=== PATIENT | male | born 1960 | race Caucasian/White ===

== ENCOUNTER 2020-06-08 20:51 | Observation (INO) | payer BC ==
[~2020-06-08] VITALS: Ht 175.3 cm; Wt 90.0 kg
[2020-06-08] MEDS ORDERED: temazepam 15mg capsule PO PRN (21:00)
[2020-06-08 21:11] LABS: BASOPHILS % (AUTO) 0.7 % (0-1); EOSINOPHILS # (AUTO) 0.4 X10'3 (0-0.9); EOSINOPHILS % (AUTO) 5.2 % (0-6); HEMOGLOBIN 14.8 g/dl (14.0-17.9); LYMPHOCYTES # (AUTO) 2.2 X10'3 (1.1-4.8); LYMPHOCYTES % (AUTO) 31.8 % (21-51); MEAN CORPUSCULAR HEMOGLOBIN 30.6 PG (27.0-31.0); MEAN CORPUSCULAR HGB CONC 33.7 g/dL (33.0-36.5); MEAN CORPUSCULAR VOLUME 90.9 FL (78-98); MEAN PLATELET VOLUME 7.8 FL (7.4-10.4); MONOCYTES # (AUTO) 0.6 X10'3 (0-0.9); MONOCYTES % (AUTO) 8.7 % (2-12); NEUTROPHILS # (AUTO) 3.8 X10'3 (1.8-7.7); NEUTROPHILS % (AUTO) 53.6 % (42-75); PLATELET COUNT 234 X10'3 (140-440); RED BLOOD COUNT 4.84 X10'6 (4.70-6.10); RED CELL DISTRIBUTION WIDTH 13.7 % (11.5-14.5)
[2020-06-08 21:32] LABS: ALANINE AMINOTRANSFERASE 98 U/L (12-78); ALBUMIN 3.9 G/DL (3.4-5.0); ALBUMIN/GLOBULIN RATIO 1.1 (1.1-1.5); ALKALINE PHOSPHATASE 61 IU/L (46-116); ANION GAP 10 (8-16); ASPARTATE AMINO TRANSFERASE 49 U/L (10-37); BILIRUBIN,TOTAL 0.4 MG/DL (0.1-1.0); BLOOD UREA NITROGEN 26 MG/DL (7-18); BUN/CREATININE RATIO 19.7 (5.4-32.0); CALCIUM 8.6 MG/DL (8.5-10.1); CHLORIDE 107 MMOL/L (99-107); CREATININE 1.32 MG/DL (0.60-1.10); GLUCOSE 131 MG/DL (70-104); POTASSIUM 3.3 MMOL/L (3.5-5.1); SODIUM 140 MMOL/L (135-145); TOTAL CARBON DIOXIDE 23.3 MMOL/L (24-32); TOTAL PROTEIN 7.4 G/DL (6.4-8.2); eGFR 56 ML/MIN
[2020-06-08] MEDS ORDERED: nitroGLYCERIN 0.4mg/hour patch TD ONE (22:25)
[2020-06-08] MEDS ORDERED: aspirin 81mg tab.chew PO ONE (22:25)
[2020-06-08] MEDS ORDERED: aminophylline 250mg/10ml inj. IV PRN (23:00)
[2020-06-08] MEDS ORDERED: magnesium 4gm in 100ml NS 100 ML IV PRN (23:00)
[2020-06-08] MEDS ORDERED: HYDROcodone/acetaminophen 10/325mg tab PO PRN (23:00)
[2020-06-08] MEDS ORDERED: ondansetron/PF 4mg/2ml inj IV PRN (23:00)
[2020-06-08] MEDS ORDERED: magnesium 2GM in 50ml NS 50 ML IV PRN (23:00)
[2020-06-08] MEDS ORDERED: metoprolol tartrate 1mg/ml inj IV PRN (23:00)
[2020-06-08] MEDS ORDERED: nitroGLYCERIN 0.4mg SUBLingual tab SL PRN ×2 (23:00)
[2020-06-08] MEDS ORDERED: mag hydrox/Alum hydrox/simeth 30ml oral suspension PO PRN (23:00)
[2020-06-08] MEDS ORDERED: HYDROcodone/acetaminophen 5mg/325mg tablet PO PRN (23:00)
[2020-06-08] MEDS ORDERED: bisacodyl 10mg suppository rectal RC PRN (23:00)
[2020-06-08] MEDS ORDERED: magnesium hydroxide 30ml (MOM) UD suspension PO PRN (23:00)
[2020-06-08] MEDS ORDERED: acetaminophen 325mg tablet PO PRN ×2 (23:00)
[2020-06-08] MEDS ORDERED: potassium CL 10mEq/100ml bag 100 ML IV PRN ×2 (23:00)
[2020-06-08] MEDS ORDERED: regadenoson 0.4mg/5ml syringe IV ONE (23:00)
[2020-06-08] MEDS ORDERED: potassium Cl 20 mEq SR tablet PO PRN ×2 (23:00)
[2020-06-08] MEDS ORDERED: magnesium Cl slow-release 64mg tablet PO PRN (23:00)
[2020-06-08] MEDS ORDERED: morphine 2 MG/ML inj. syringe IV PRN ×2 (23:00)
--- NOTE | 2020-06-08 23:54 | NUR ---
Patient in room ED 8. I have received report from Yesenia WHIPPLE and had the opportunity to ask questions and awaiting arrival of patient to the PCU unit.
[2020-06-08] MEDS ORDERED: MONT10TA21 PO (23:57)
[2020-06-08] MEDS ORDERED: LISI-600 PO (23:57)
[2020-06-08] MEDS ORDERED: FEXO180T94 PO (23:57)
[2020-06-08] MEDS ORDERED: FLUT1DIS15 INH (23:57)
[2020-06-09] VITALS (12 sets, daily range): BP systolic 99–133; BP diastolic 64–95
--- NOTE | 2020-06-09 00:10 | NUR ---
Patient arrived to the PCU unit at this time. He is alert and oriented and able to make his needs known. He ambulated from the wheelchair to the bed with no issues. Vitals are stable. He is on room air. He denies any pain at this time. Nitro patch in place. Call light in reach and all safety precautions in place. Patient educated about being NPO now for Lexiscan in the morning. Will continue to monitor for changes.
[2020-06-09] MEDS: normal saline 1000ml 1,000 ML IV SCH ×2 (00:35→09:36)
[2020-06-09 03:14] LABS: BASOPHILS # (AUTO) 0.1 X10'3 (0-0.2); BASOPHILS % (AUTO) 1.2 % (0-1); EOSINOPHILS # (AUTO) 0.4 X10'3 (0-0.9); EOSINOPHILS % (AUTO) 5.2 % (0-6); HEMATOCRIT 40.9 % (42.0-52.0); HEMOGLOBIN 13.7 g/dl (14.0-17.9); LYMPHOCYTES # (AUTO) 1.9 X10'3 (1.1-4.8); LYMPHOCYTES % (AUTO) 27.5 % (21-51); MEAN CORPUSCULAR HEMOGLOBIN 30.5 PG (27.0-31.0); MEAN CORPUSCULAR HGB CONC 33.5 g/dL (33.0-36.5); MEAN CORPUSCULAR VOLUME 90.9 FL (78-98); MEAN PLATELET VOLUME 7.9 FL (7.4-10.4); MONOCYTES # (AUTO) 0.8 X10'3 (0-0.9); MONOCYTES % (AUTO) 11.7 % (2-12); NEUTROPHILS # (AUTO) 3.8 X10'3 (1.8-7.7); NEUTROPHILS % (AUTO) 54.4 % (42-75); PLATELET COUNT 216 X10'3 (140-440); RED BLOOD COUNT 4.49 X10'6 (4.70-6.10); RED CELL DISTRIBUTION WIDTH 13.8 % (11.5-14.5)
[2020-06-09 03:33] LABS: ALANINE AMINOTRANSFERASE 85 U/L (12-78); ALBUMIN 3.4 G/DL (3.4-5.0); ALBUMIN/GLOBULIN RATIO 1.1 (1.1-1.5); ALKALINE PHOSPHATASE 53 IU/L (46-116); ANION GAP 8 (8-16); ASPARTATE AMINO TRANSFERASE 40 U/L (10-37); BILIRUBIN,TOTAL 0.3 MG/DL (0.1-1.0); BLOOD UREA NITROGEN 28 MG/DL (7-18); CALCIUM 8.3 MG/DL (8.5-10.1); CHLORIDE 109 MMOL/L (99-107); CREATININE 1.12 MG/DL (0.60-1.10); GLUCOSE 118 MG/DL (70-104); POTASSIUM 4.4 MMOL/L (3.5-5.1); SODIUM 141 MMOL/L (135-145); TOTAL CARBON DIOXIDE 23.8 MMOL/L (24-32); TOTAL PROTEIN 6.5 G/DL (6.4-8.2); eGFR 67 ML/MIN
[2020-06-09 03:41] LABS: CHOL/HDL RATIO 6.1 (0.00-4.99); CHOLESTEROL 225 MG/DL (0-200); HDL CHOLESTEROL 37 MG/DL (35-60); LDL CHOLESTEROL 153 MG/DL (50-100); MAGNESIUM 1.9 MG/DL (1.5-2.4); PHOSPHORUS 3.8 MG/DL (2.3-4.5); TRIGLYCERIDES 198 MG/DL (20-135)
--- NOTE | 2020-06-09 06:39 | NUR ---
Problems reprioritized. Patient report given, questions answered & plan of care reviewed with Royer WHIPPLE.
--- NOTE | 2020-06-09 06:40 | NUR ---
Patient in room PCU 3015. I have received report from joel WHIPPLE and had the opportunity to ask questions and assume patient care.
[2020-06-09] MEDS ORDERED: aspirin 81mg tablet.DR PO SCH (08:00)
[2020-06-09] MEDS ORDERED: non-formulary drug (Fluticasone/Salmeterol (Advair 500-50 Diskus) 1 PUFFS) INH SCH (08:00)
[2020-06-09] MEDS ORDERED: loratadine 10mg tablet PO SCH (08:00)
[2020-06-09] MEDS ORDERED: enoxaparin 40mg/0.4ml syringe SUBCUT SCH (08:00)
[2020-06-09] MEDS ORDERED: montelukast 10mg tablet PO SCH (08:00)
[2020-06-09] MEDS ORDERED: budesonide 0.5mg/2ml UD nebule IH SCH (08:00)
[2020-06-09] MEDS ORDERED: lisinopril 20mg tablet PO SCH (08:00)
[2020-06-09] MEDS ORDERED: lisinopril 10 MG tablet PO SCH (08:00)
[2020-06-09] MEDS ORDERED: K and/or MAG REPLACEMENT MC SCH (08:00)
[2020-06-09] MEDS ORDERED: albuterol 2.5 MG/3 ML nebule NEB SCH (08:00)
[2020-06-09] MEDS ORDERED: cetirizine 10mg tablet PO SCH (08:00)
--- NOTE | 2020-06-09 10:34 | NUR ---
Paged Dr. Jacome. Bean Shipman. [id number]. patient SANDRINE is resulted. Royer [phone]
--- NOTE | 2020-06-09 15:39 | NUR ---
Patient safe for discharge per MD orders, discharge instructions reviewed and questions answered, belongings stayed on patient, non new prescriptions, tele and IV DC'd, patient wheeled to lobby, picked up by spouse in personal vehicle.
== END 2020-06-09 15:35 | disposition home or self-care (01) ==
LOC: ER 20:51 → ED HOLD 22:57 → PCU 3S 06-09 00:10
PROVIDERS: ADMIT Family Medicine; ATTEND Internal Medicine
DX: R07.89 Other chest pain (principal); I20.9 Angina pectoris, unspecified; R42 Dizziness and giddiness; E87.6 Hypokalemia; I12.9 Hypertensive chronic kidney disease with stage 1 through stage 4 chronic kidney disease, or unspecified chronic kidney disease; N18.9 Chronic kidney disease, unspecified; E78.5 Hyperlipidemia, unspecified; J45.909 Unspecified asthma, uncomplicated; R79.89 Other specified abnormal findings of blood chemistry; E78.00 Pure hypercholesterolemia, unspecified; Z87.891 Personal history of nicotine dependence; Z88.0 Allergy status to penicillin; Z79.899 Other long term (current) drug therapy
CPT/HCPCS: 36415; 71045; 78452; 80053; 80061; 83036; 83735; 83880; 84100; 84484; 85025; 87081; 93005; 93017; 93306; 94640; 94760; 96360; 96361; 96372; 99285; A9500; G0378; J2785; J7030; J1650; J7626